=== PATIENT | male | born 1960 | race Caucasian/White ===

== ENCOUNTER 2016-10-30 10:53 | Emergency (ER) | payer BC ==
--- NOTE | 2016-10-30 11:31 | ED ---
General Adult HPI - General Chief complaint: Extremity Injury, Lower Stated complaint: heard popping in right ankle Time Seen by Provider: 10/30/16 11:20 Source: RN notes reviewed - History of Present Illness Initial comments: Patient 56-year-old male who presents emergency room today with chief complaint of an injury to the right ankle that occurred 1 day ago. He does admit that he was walking stepped into a small hole and felt a pop in the right ankle. Does admit to pain and swelling locally to the lateral aspect. He denies any complaints associated symptoms at this time. Patient denies any recent fever, chills, shortness of breath, chest pain, back pain, abdominal pain, nausea or vomiting, numbness or tingling, dysuria or hematuria, constipation or diarrhea, headaches or visual changes, or any other complaints. - Related Data Home Medications Medication Instructions Recorded Confirmed Aspirin EC [Ecotrin Low Dose] 81 mg PO DAILY 10/30/16 10/30/16 Fenofibrate,Micronized 130 mg PO DAILY 10/30/16 10/30/16 [Fenofibrate] Lisinopril [Prinivil] 20 mg PO BID 10/30/16 10/30/16 Metoprolol Tartrate [Lopressor] 50 mg PO BID 10/30/16 10/30/16 [place]-3 Fatty Acids/Fish Oil [Fish 1 cap PO DAILY 10/30/16 10/30/16 Oil 1,000 mg Capsule] Previous Rx's Medication Instructions Recorded Ibuprofen [Motrin] 600 mg PO Q6HR PRN #30 day 10/30/16 Allergies Allergy/AdvReac Type Severity Reaction Status Date / Time [place] And Derivatives Allergy Hives/Itchi Verified 10/30/16 11:43 [[place]] ng Review of Systems ROS Statement: Those systems with pertinent positive or pertinent negative responses have been documented in the HPI. ROS Other: All systems not noted in ROS Statement are negative. General Exam - General Exam Comments Initial Comments: General: The patient is awake and alert, in no distress, and does not appear acutely ill. Neck: The neck is supple, there is no tenderness or JVD. Cardiovascular: There is a regular rate and rhythm. No murmur, rub or gallop is appreciated. Respiratory: Lungs are clear to auscultation, respirations are non-labored, breath sounds are equal. No wheezes, stridor, rales, or rhonchi. Musculoskeletal: Mild swelling to the lateral aspect. Shows good range of motion both plantar and dorsiflexion. He is locally tender over both the medial and lateral malleolus. Does have tenderness to both posterior and anterior aspects of the lateral malleolus. Sensation intact with pulses equal bilaterally 2+. Strength 5/5. Neurological: A&O x 3. CN II-XII intact, There are no obvious motor or sensory deficits. Coordination appears grossly intact. Speech is normal. Skin: Skin is warm and dry and no rashes or lesions are noted. Psychiatric: Normal mood and affect. Course Vital Signs 10/30/16 11:33 Temperature 98 F Pulse Rate 74 Respiratory 20 Rate Blood Pressure 137/80 O2 Sat by Pulse 99 Oximetry Medical Decision Making - Medical Decision Making Patient's x-ray reviewed and does show evidence for a avulsion type fracture of the distal fibula. Results were discussed with the patient. He is been splinted in a short leg posterior OCL. He is advised to use his crutches that he states he has at home and follow-up with orthopedics within the next 2 days. Disposition Clinical Impression: Ankle fracture Disposition: HOME SELF-CARE Condition: Good Instructions: Ankle Fracture (ED) Additional Instructions: Please follow-up with orthopedics over the next 2 days. Please a splint placed and continued ice elevate at least 4 times a day for 20 minutes at a time. Please use Tylenol/ibuprofen for pain as needed. Please return to emergency room if any symptoms increase or worsen. Prescriptions: Ibuprofen [Motrin] 600 mg PO Q6HR PRN #30 day PRN Reason: Pain Referrals: Anderson Olsen DO [Primary Care Provider] - 1-2 days Pawel Rodriguez MD [Medical Doctor] - 1-2 days Time of Disposition: 12:02
--- NOTE | 2016-10-30 11:45 | XR ---
EXAMINATION TYPE: XR ankle complete RT DATE OF EXAM: 10/30/2016 CLINICAL HISTORY: Rolling injury with pain. TECHNIQUE: Frontal, lateral and oblique images of the right ankle are obtained. COMPARISON: Right foot x-ray January 30, 2014.. FINDINGS: There is moderate to severe soft tissue swelling over lateral malleolus. There is acute av ulsion type fracture with 5 mm curvilinear fracture fragment from the lateral malleolus noted. The an kle mortise symmetry is preserved. Medial malleolus is intact. There is redemonstration of tiny super ior and moderate size inferior calcaneal spurs. IMPRESSION: There is soft tissue swelling with acute avulsion type fracture from the lateral malleol us noted. (Initial encounter closed type post traumatic fracture)
[2016-10-30 12:22] VITALS: BP 173/89; PULSE 71; RESP 16; TEMP 99.9
== END 2016-10-30 12:23 | disposition home or self-care (01) ==
LOC: EC 10:53
DX: S82.61XA Displaced fracture of lateral malleolus of right fibula, initial encounter for closed fracture (principal); Z79.82 Long term (current) use of aspirin; Z79.899 Other long term (current) drug therapy; Z91.018 Allergy to other foods; W22.8XXA Striking against or struck by other objects, initial encounter; Y93.01 Activity, walking, marching and hiking
CPT/HCPCS: 29515; 99283